=== PATIENT | female | born 1975 | race Caucasian/White ===

== ENCOUNTER → 2016-04-24 | Outpatient (CLI) | payer BC ==
--- NOTE | 2016-05-01 10:34 | RADIOLOGY REPORT PS360 ---
DIG MAMM-SCREEN MOHIT W/CAD CAD Screening ORDERING PHYSICIAN : Nicanor Horton MD PATIENT AGE: 40 years GENDER: Female COMPARISON:.: Baseline study with no previous INDICATION: Routine screening 40-year-old. Taking control pills. Noncontributory family history. No new complaints. Baseline TECHNIQUE: Standard CC and MLO images were obtained. R2 CAD reviewed. FINDINGS: Moderately dense breast bilaterally. Fibroglandular elements Most evident towards upper outer quadrant.. RIGHT BREAST: Small focal density at the deep right breast on MLO view. Question some extremely faint calcifications. Most likely a summation shadow is as Seems to be increased density subsequent axillary cc view & can be followed in one year. Region of increased density at the the far anterior right breast, upper-outer quadrant, is seen on on cc view but seems to dissipate on subsequent MLO view and axillary cc view and thus not of concern.. Thus most likely summation shadow from dense fibroglandular elements. .LEFT BREAST: No areas of concern. Fibroglandular elements dissipate from one view to another with no focal area of concern. IMPRESSION:......... . Baseline mammogram no prior for comparison RIGHT BREAST. On final review there is a small focal density at the right breast MLO view, with very faint calcifications at this area labeled X and possibly area labeled Y. Most likely benign feature and summation shadow but would recommend this young patient return for spot MLO, as well as magnification spot 90 degree & cc views of this region.\\ . .. LEFT BREAST: No areas of significant concern left breast. Follow-up in one year left breast.. . Moderately dense, inhomogeneous breast with mild asymmetry..Encourage self breast examination BI-RADS CATEGORY: 0_Incomplete: Need additional imaging RECOMMENDED FOLLOWUP: ADD ADDITIONAL IMAGING left breast (A letter has been sent to the patient regarding results of the study.)
== END ==
LOC: RAD 09:46
DX: Z12.31 Encounter for screening mammogram for malignant neoplasm of breast (principal)
CPT/HCPCS: G0202